=== PATIENT | female | born 1990 | race Caucasian/White ===

== ENCOUNTER 2019-01-16 23:33 | Emergency (ER) | payer OTHER ==
[2019-01-17] MEDS ORDERED: Morphine 4 MG/ML VIAL ONE (00:02)
[2019-01-17] MEDS ORDERED: Lidocaine Viscous Sol 2% 15 ml UD Cup ONE (00:02)
[2019-01-17] MEDS ORDERED: Mag-Al Plus 1200 MG/1200 MG/120 MG/30 ML UDCUP ONE (00:02)
[2019-01-17] MEDS ORDERED: Ondansetron PF 4 MG/2 ML Vial ONE (00:10)
[2019-01-17 00:13] LABS: #Basophils 0.1 thou/uL (0.0-0.2); #Eosinphils 0.7 thou/uL (0.0-0.7); #Lymphocytes 2.4 thou/uL (1.20-3.40); #Monocytes 0.9 thou/uL (0.11-0.59); #Neutrophils 12.2 thou/uL (1.40-6.50); %Basophils 0.8 % (0.0-1.0); %Eosinophils 4.3 % (0.0-10.0); %Lymphocytes 14.8 % (21.0-51.0); %Monocytes 5.6 % (0.0-10.0); %Neutrophils 74.5 % (42.0-75.0); Hemoglobin 12.5 g/dL (12.0-16.0); Mean Corpuscular HGB CONC 34.1 g/dL (32.0-36.0); Mean Corpuscular Hemoglobin 28.4 pg (27.0-31.0); Mean Corpuscular Volume 83.3 fL (78.0-98.0); Platelet Count 287 thou/uL (130-400); RBC Distribution Width 12.6 % (11.5-14.5); White Blood Cell (WBC) Count 16.4 thou/uL (4.8-10.8)
[2019-01-17 00:23] LABS: BHCG - Serum Negative (NEGATIVE); Pregs Control Background? CLEAR/WHITE (CLR/WHITE); Pregs Control Bar Appear? YES (CONTROL BAR)
[2019-01-17 00:24] LABS: Bilirubin Negative (Negative); Blood, Urine Negative (Negative); Clarity Slightly Cloudy (Clear); Glucose, Urine (Dipstick) Negative (Negative); Leukocyte Negative (Negative); Nitrite Negative (Negative); Protein, Urine (Dipstick) Negative (Neg-Trace); Urobilinogen 0.2 mg/dL (Less than 2)
[2019-01-17 00:27] LABS: ALT (SGPT) 19 U/L (8-55); AST (SGOT) 15 U/L (5-34); Albumin 4.3 g/dL (3.5-5.0); Alkaline Phosphatase 51 U/L (40-150); Anion Gap 13 mmol/L (10-20); BUN (Urea Nitrogen) 14 mg/dL (7.0-18.7); Bilirubin, Total 0.2 mg/dL (0.2-1.2); Calc. Creatinine Clearance 0 mL/min (70-130); Calcium 9.9 mg/dL (7.8-10.44); Carbon Dioxide 27 mmol/L (22-29); Chloride 105 mmol/L (98-107); Estimated GFR-MDRD 82; Globulin 2.9 g/dL (2.4-3.5); Glucose 112 mg/dL (70-105); Lipase 9 U/L (8-78); Potassium 3.9 mmol/L (3.5-5.1); Protein, Total 7.2 g/dL (6.0-8.3); Sodium 141 mmol/L (136-145)
[2019-01-17] MEDS ORDERED: Ketorolac Tromethamine 30 MG/ML VIAL ONE (00:30)
--- NOTE | 2019-01-17 07:44 | ULT ---
PRELIMINARY REPORT/[facility]/EMERGENCY AFTER HOURS PROCEDURE: EXAM: US Abdomen Limited, Right Upper Quadrant EXAM DATE/TIME: 01/17/2019 12:40 AM CLINICAL HISTORY: 28 years old, female; Abdominal pain; Generalized; Patient HX: Abd pain. Nausea today TECHNIQUE: Imaging protocol: Real-time ultrasound of the abdomen with image documentation. Examination was focused on the right upper quadrant. COMPARISON: No relevant prior studies available. FINDINGS: Liver: No acute findings. No mass. Gallbladder: No acute findings. No gallstones. Common bile duct: Unremarkable. Pancreas: Visualized pancreas is unremarkable. Right kidney: No acute findings. No mass. No hydronephrosis. IMPRESSION: No acute findings. Thank you for allowing us to participate in the care of your patient. Dictated and Authenticated by: Palmer Wilson MD 01/17/2019 1:26 AM Central Time ([place]) Final report by Dr. Hill Emergency after-hours study ULTRASOUND ABDOMEN LIMITED: (RIGHT UPPER QUADRANT) DATE: 01/17/2019 HISTORY: Right upper quadrant abdominal pain and nausea FINDINGS: Gallbladder: Normal wall thickness. No gallstones or sludge identified. No pericholecystic fluid. Liver: Normal parenchymal echogenicity. Right kidney: No hydronephrosis. Pancreas: Visualized, with no gross sonographic abnormality identified (although ultrasound is relati vely insensitive for the detection of pancreatic pathology compared to CT and MRI.). Common duct caliber: 4 mm. Agree with preliminary report by [facility]. IMPRESSION: Normal. Transcribed Date/Time: 01/17/2019 8:09 AM
== END 2019-01-17 01:49 | disposition home or self-care (01) ==
LOC: SCSER 23:33
DX: R10.10 Upper abdominal pain, unspecified (principal); F41.9 Anxiety disorder, unspecified; F32.9 Major depressive disorder, single episode, unspecified; F17.210 Nicotine dependence, cigarettes, uncomplicated; G43.909 Migraine, unspecified, not intractable, without status migrainosus
CPT/HCPCS: 76705; 80053; 81003; 83690; 84703; 85025; 96361; 96374; 96375; J1885; J2270; J2405

== ENCOUNTER 2019-01-18 19:47 | Inpatient (IN) | payer OTHER ==
[~2019-01-18 19:47] MED LIST: Iopamidol 300 61% 100 ML VIAL FS ONE
[2019-01-18 21:04] LABS: #Basophils 0.2 thou/uL (0.0-0.2); #Eosinphils 0.1 thou/uL (0.0-0.7); #Lymphocytes 1.2 thou/uL (1.20-3.40); #Monocytes 1.6 thou/uL (0.11-0.59); #Neutrophils 16.5 thou/uL (1.40-6.50); %Basophils 0.9 % (0.0-1.0); %Eosinophils 0.5 % (0.0-10.0); %Lymphocytes 6.3 % (21.0-51.0); %Neutrophils 84.4 % (42.0-75.0); Mean Corpuscular HGB CONC 33.2 g/dL (32.0-36.0); Mean Corpuscular Hemoglobin 28.3 pg (27.0-31.0); Mean Corpuscular Volume 85.1 fL (78.0-98.0); Mean Platelet Volume 6.9 fL (7.4-10.4); Platelet Count 255 thou/uL (130-400); RBC Distribution Width 13.1 % (11.5-14.5); Red Blood Cell (RBC) Count 4.59 mill/uL (4.20-5.40); White Blood Cell (WBC) Count 19.6 thou/uL (4.8-10.8)
[2019-01-18] MEDS ORDERED: Ondansetron PF 4 MG/2 ML Vial ONE (21:04)
[2019-01-18] MEDS ORDERED: Morphine 4 MG/ML VIAL ONE (21:04)
[2019-01-18 21:06] LABS: Bilirubin Small (Negative); Blood, Urine Small (Negative); Clarity Cloudy (Clear); Glucose, Urine (Dipstick) Negative (Negative); Leukocyte Negative (Negative); Nitrite Negative (Negative); Protein, Urine (Dipstick) 30 mg/dL (Neg-Trace); Urobilinogen 0.2 mg/dL (Less than 2)
[2019-01-18 21:12] LABS: Bacteria/HPF 2+ HPF (None Seen); Mucous/LPF 2+ LPF (<2+)
[2019-01-18 21:13] LABS: BHCG - Serum Negative (NEGATIVE); Pregs Control Background? CLEAR/WHITE (CLR/WHITE); Pregs Control Bar Appear? YES (CONTROL BAR)
[2019-01-18 21:20] LABS: ALT (SGPT) 14 U/L (8-55); AST (SGOT) 13 U/L (5-34); Albumin 4.3 g/dL (3.5-5.0); Alkaline Phosphatase 69 U/L (40-150); Anion Gap 17 mmol/L (10-20); BUN (Urea Nitrogen) 11 mg/dL (7.0-18.7); Bilirubin, Total 0.8 mg/dL (0.2-1.2); Calc. Creatinine Clearance 0 mL/min (70-130); Calcium 9.8 mg/dL (7.8-10.44); Carbon Dioxide 23 mmol/L (22-29); Chloride 100 mmol/L (98-107); Estimated GFR-MDRD Greater than 90; Globulin 3.6 g/dL (2.4-3.5); Glucose 93 mg/dL (70-105); Potassium 3.8 mmol/L (3.5-5.1); Protein, Total 7.9 g/dL (6.0-8.3); Sodium 136 mmol/L (136-145)
[2019-01-18] MEDS ORDERED: Piperacillin/Tazobactam 4.5 GM VIAL ONE (21:53)
--- NOTE | 2019-01-18 21:53 | CT ---
EXAM: CT ABDOMEN AND PELVIS HISTORY: Abdominal pain. Right upper quadrant pain. Right lower quadrant pain. COMPARISON: None. Procedure: Multiple contiguous axial images were obtained and a CT of the abdomen and pelvis with IV contrast. C oronal reformats were performed. FINDINGS: Lower Chest: within normal limits. Vessels: Normal caliber aorta. Heart: Normal heart size Abdomen: Portal vein:Patent Gallbladder: No calcified gallstones. Normal caliber wall. Liver: within normal limits. Pancreas: within normal limits. Spleen: within normal limits. Adrenals: within normal limits. Kidneys: Symmetric enhancement. No obstructive uropathy. Peritoneum: There is free fluid tracking along the posterior midline aspect of the mesentery. No evid ence of pneumoperitoneum. No mass or lymphadenopathy. Bowel: Limited evaluation by technique. No evidence of small bowel obstruction. Ileocecal junction is normal. Unremarkable colon. Emanating from the cecal apex is a dilated tubular structure with adjacent fat stranding and fluid. At the base of the structure, there is a hyperdense lesion compatib le with an appendicolith measuring 1.0 x 0.9 cm. Dilated appendix measures 1.7 cm. Mesentery and Retroperitoneum: Scattered nonspecific mesenteric lymph nodes may be reactive Abdominal Wall: within normal limits. Pelvis: Reproductive Organs: Uterus and left adnexa are unremarkable. Peripherally enhancing hypodensity in t he right adnexa may represent a 1.3 cm right ovarian follicle. Pelvis: Free fluid in the pelvis. Bladder: within normal limits. Bones: within normal limits. IMPRESSION: Appendicitis. Results of study discussed with Shahrzad Barrow 01/18/2019 at 9:52 PM Code CR Transcribed Date/Time: 01/18/2019 9:56 PM
[2019-01-18] MEDS ORDERED: Fentanyl 100 MCG/2 ML VIAL ONE (22:55)
[2019-01-19] MEDS ORDERED: Acetaminophen 1,000 MG in Premix Bag 1 BAG IVPB PRN (00:01)
[2019-01-19] MEDS ORDERED: Morphine 4 MG/ML VIAL SLOW IVP PRN (00:01)
[2019-01-19] MEDS: Lactated Ringer's 1,000 ML IV SCH ×2 (00:37→08:31)
[2019-01-19] MEDS ORDERED: Sodium Chloride 0.9% 10 ML ONE ×2 (00:55→06:27)
[2019-01-19 01:14] VITALS: BMI 33.7
[2019-01-19] MEDS ORDERED: Piperacillin/Tazobactam 4.5 GM in Sodium Chloride 0.9% 100 ML IVPB SCH (04:00)
[2019-01-19] MEDS ORDERED: Bupivacaine/Epinephrine 0.25% 30 ML VIAL ONE (07:44)
[2019-01-19] MEDS ORDERED: Fentanyl 100 MCG/2 ML VIAL ONE ×3 (08:22→10:02)
--- NOTE | 2019-01-19 08:52 | HP ---
CHIEF COMPLAINT: Right lower quadrant abdominal pain. HISTORY OF PRESENT ILLNESS: The patient is a 28-year-old white female. She presented to the emergency room late last night complaining of right lower quadrant abdominal pain. White blood cell count was elevated at 19,000. CT scan was obtained with findings consistent with acute, but probably nonperforated appendicitis. She was placed on IV antibiotics and admitted to my service. Of note, she had presented to the emergency room 2 days previously with complaint of abdominal pain, but at that time, it was felt to be right upper quadrant abdominal pain. Her white blood cell count at that time was 16.4. A gallbladder ultrasound was obtained that revealed no evidence of abnormality regarding her gallbladder. She was reassured and discharged home at that time. She returned about 36 hours later when the pain persisted and progressed to the right lower quadrant. PAST MEDICAL HISTORY: Negative. PAST SURGICAL HISTORY: None. MEDICATIONS: None. ALLERGIES: NO KNOWN DRUG ALLERGIES. PERSONAL AND SOCIAL HISTORY: She smokes, but less than 1 pack per day. She does not drink alcohol significantly. She is . Her is present at the bedside. She has 2 young children. She is a teacher. REVIEW OF SYSTEMS: Ten-system review is otherwise unremarkable. FAMILY HISTORY: Noncontributory. PHYSICAL EXAMINATION: VITAL SIGNS: She has been afebrile since admission. Her pulse is 88, blood pressure is 108/60. GENERAL: She is a well-developed, well-nourished, pleasant white female, resting in bed, and in no acute distress. She is alert and oriented x3. HEAD, EYES, EARS, NOSE, AND THROAT: Unremarkable. NECK: Supple without mass or tenderness. LUNGS: Clear to auscultation throughout. CARDIAC: Regular rate and rhythm without murmur. ABDOMEN: Soft. Bowel sounds are present, but hypoactive. There is focal tenderness in the right lower quadrant with guarding consistent with acute appendicitis. ASSESSMENT: The patient with acute appendicitis. PLAN: Laparoscopic appendectomy. I have discussed the operation in detail with the patient as well as potential risks. She understands and agrees to proceed with surgery at this time. Job ID: [id number]
[2019-01-19] MEDS ORDERED: Ketorolac Tromethamine 30 MG/ML VIAL IVP PRN (08:59)
[2019-01-19] MEDS ORDERED: HYDROmorphone 2 MG/ML VIAL SLOW IVP PRN (08:59)
[2019-01-19] MEDS ORDERED: Promethazine HCl 25 MG/ML VIAL SLOW IVP PRN (08:59)
[2019-01-19] MEDS ORDERED: Morphine Sulfate 2 MG/ML SYRINGE SLOW IVP PRN (08:59)
[2019-01-19] MEDS ORDERED: Meperidine HCl/PF 25 MG/ML VIAL SLOW IVP PRN (08:59)
[2019-01-19] MEDS ORDERED: PACU-Morphine 4MG/ML VIAL SLOW IVP PRN (08:59)
[2019-01-19] MEDS ORDERED: Promethazine HCl 25 MG/ML VIAL IM PRN ×2 (08:59→10:33)
[2019-01-19] MEDS ORDERED: Ondansetron HCl/PF 4 MG/2 ML Vial IVP PRN (08:59)
[2019-01-19] MEDS ORDERED: hydrALAZINE 20 MG/ML VIAL SLOW IVP PRN (10:33)
[2019-01-19] MEDS ORDERED: Acetaminophen 325 MG TAB PO PRN (10:33)
[2019-01-19] MEDS ORDERED: Dextrose 50% Abboject 50 ML SYRINGE SLOW IVP PRN (10:33)
[2019-01-19] MEDS ORDERED: Ondansetron PF 4 MG/2 ML Vial IVP PRN (10:33)
[2019-01-19] MEDS ORDERED: Dextrose 5% in Water 1,000 ML IV PRN (10:33)
[2019-01-19] MEDS: Ketorolac Tromethamine 30 MG/ML VIAL IVP SCH ×2 (11:25→17:35)
[2019-01-19] MEDS: Piperacillin/Tazobactam 3.375 GM in Sodium Chloride 0.9% 100 ML IVPB SCH ×2 (11:25→17:36)
[2019-01-19] MEDS: D5 1/2 NS w/20 mEq KCL 1,000 ML IV SCH ×2 (11:26→19:40)
[2019-01-19] MEDS: HYDROcodone/Acetaminophen 10/325 mg Tablet PO PRN ×2 (13:18→17:36)
[2019-01-19] MEDS ORDERED: Ondansetron PF 4 MG/2 ML Vial ONE (13:22)
[2019-01-19] MEDS ORDERED: Ketorolac Tromethamine 30 MG/ML VIAL ONE (13:22)
[2019-01-19] MEDS ORDERED: Dexamethasone 20 MG/5 ML VIAL ONE (13:22)
[2019-01-19] MEDS ORDERED: PROPOFOL 200 MG/20 ML VIAL ONE (13:22)
[2019-01-19] MEDS ORDERED: Lidocaine 1% PF 5 ML VIAL ONE (13:22)
[2019-01-19] MEDS ORDERED: Glycopyrrolate 0.2 MG/ML 5 ML SYRINGE ONE (13:22)
[2019-01-19] MEDS ORDERED: PROVENTIL INHALER 6.7 G (200 INHALATIONS) ONE (13:22)
[2019-01-19] MEDS ORDERED: Rocuronium Bromide 10 MG/ML (10ML VIAL) ONE (13:22)
[2019-01-19] MEDS ORDERED: Succinylcholine Chloride 20 MG/ML 10 ml SYRINGE FS ONE (13:22)
--- NOTE | 2019-01-19 13:45 | OP ---
DATE OF PROCEDURE: 01/19/2019 PREOPERATIVE DIAGNOSIS: Acute appendicitis. POSTOPERATIVE DIAGNOSIS: Acute appendicitis, gangrenous. OPERATION PERFORMED: Laparoscopic appendectomy with washout and drain placement. ANESTHESIA: General endotracheal. INDICATIONS: The patient is a 28-year-old white female. She presented with findings of acute appendicitis, taken to the operating room at this time for laparoscopic appendectomy. DESCRIPTION OF OPERATION: Informed consent was obtained. The patient was taken to the operating room, where general endotracheal anesthesia was obtained with the patient in supine position. Abdomen was prepped with ChloraPrep, draped in sterile fashion. Local anesthetic was infiltrated using 0.25% Marcaine with epinephrine. A 5-mm infraumbilical incision was created, through which a Veress needle was passed into the peritoneal cavity and pneumoperitoneum was established using carbon dioxide up to pressure of 15 mmHg. A 5-mm trocar port sites was passed through the same incision and laparoscopic camera was passed through this port. Under direct vision, 2 additional ports were placed using a 5-mm left lower quadrant port and a 12-mm suprapubic port. Within the abdomen, there was obvious acute appendicitis. There was no evidence of perforation. As I mobilized the small bowel and the cecum, however, the appendix immediately perforated. There was a gangrenous segment and a fecalith fell out of this gangrenous segment. This was preserved and then removed later. With difficulty, the mesoappendix was taken down with electrocautery. The base of the appendix was skeletonized. There was severe inflammation involving the base of the appendix. I therefore utilized the stapler, firing two loads across the base of the appendix and the cecum. The appendix was placed in a specimen retrieval sac along with a fecalith and this was removed through the suprapubic port. Fascia was closed with 0 Vicryl suture using a GraNee needle. The right lower quadrant pelvis was thoroughly irrigated. All irrigant was aspirated. A #19 round fluted drain was obtained and brought out through the left lower quadrant incision and placed across the pelvis and right lower quadrant. It was secured in place with 3-0 nylon suture. All ports were removed under direct vision. Pneumoperitoneum was carefully evacuated. 0.25% Marcaine with epinephrine was infiltrated into each port site. Skin edges were approximated with 4-0 Monocryl subcuticular suture. Dermabond was placed externally. There were no complications. The patient tolerated the procedure well and was taken to recovery room in stable condition. Job ID: [id number]
[2019-01-19] MEDS: Famotidine 20 MG TAB PO SCH (20:35)
[2019-01-19] MEDS: Enoxaparin Sodium 40 MG/0.4 ML SYRINGE SC SCH (20:38)
[2019-01-19] MEDS: Famotidine/PF 20 mg/2ml Vial SLOW IVP SCH (21:00)
[2019-01-19] MEDS: Morphine 4 MG/ML VIAL SLOW IVP PRN (21:59)
[2019-01-20] MEDS: Ketorolac Tromethamine 30 MG/ML VIAL IVP SCH ×4 (00:16→18:32)
[2019-01-20] MEDS: Piperacillin/Tazobactam 3.375 GM in Sodium Chloride 0.9% 100 ML IVPB SCH ×4 (00:19→18:44)
[2019-01-20] MEDS: Morphine 4 MG/ML VIAL SLOW IVP PRN ×3 (05:30→16:45)
[2019-01-20] MEDS: D5 1/2 NS w/20 mEq KCL 1,000 ML IV SCH ×3 (05:33→22:55)
[2019-01-20 06:37] LABS: Anion Gap 10 mmol/L (10-20); BUN (Urea Nitrogen) 9 mg/dL (7.0-18.7); Calc. Creatinine Clearance 153 mL/min (70-130); Calcium 8.8 mg/dL (7.8-10.44); Carbon Dioxide 24 mmol/L (22-29); Chloride 106 mmol/L (98-107); Estimated GFR-MDRD Greater than 90; Glucose 135 mg/dL (70-105); Potassium 4.2 mmol/L (3.5-5.1); Sodium 136 mmol/L (136-145)
[2019-01-20 09:10] LABS: #Lymphocytes 0.8 thou/uL (1.20-3.40); #Monocytes 0.9 thou/uL (0.11-0.59); %Basophils 0.1 % (0.0-1.0); %Eosinophils 0.1 % (0.0-10.0); %Lymphocytes 6.2 % (21.0-51.0); %Monocytes 6.8 % (0.0-10.0); %Neutrophils 86.9 % (42.0-75.0); Hemoglobin 9.3 g/dL (12.0-16.0); Mean Corpuscular HGB CONC 32.8 g/dL (32.0-36.0); Mean Corpuscular Hemoglobin 29.2 pg (27.0-31.0); Mean Platelet Volume 7.6 fL (7.4-10.4); Platelet Count 216 thou/uL (130-400); RBC Distribution Width 12.7 % (11.5-14.5); Red Blood Cell (RBC) Count 3.17 mill/uL (4.20-5.40); White Blood Cell (WBC) Count 12.7 thou/uL (4.8-10.8)
[2019-01-20] MEDS: Famotidine 20 MG TAB PO SCH ×2 (09:49→21:14)
[2019-01-20] MEDS: HYDROcodone/Acetaminophen 10/325 mg Tablet PO PRN ×3 (12:33→21:14)
--- NOTE | 2019-01-20 14:08 | PRG ---
DATE OF SERVICE: 01/20/2019 SUBJECTIVE: Ms. Cristina is postoperative day #1 from laparoscopic appendectomy. She had a gangrenous/perforated appendix. She had intraabdominal contamination at the time of her surgery. A drain was placed for postoperative day drainage. She has no complaints. She notes minimal appropriate discomfort. She tells me she is ambulating in the hallway and tolerating her diet, although her appetite is less than usual. OBJECTIVE: VITAL SIGNS: On examination, she is afebrile. Vital signs within normal limits. Her blood pressure is a little bit low, but stable at 105/68. LUNGS: Clear to auscultation. ABDOMEN: Soft with normoactive bowel sounds. She has mild appropriate tenderness to palpation at the areas of her incisions and in the right lower quadrant. Her drain output was 200 mL yesterday, but that is expected given the amount of irrigation. Her urine output was good. LABORATORY DATA: Her white blood cell count has dropped from 19.6 down to 12.7. Her hemoglobin dropped from 13 down to 9.3. Her basic metabolic panel is essentially normal. ASSESSMENT: She is doing very well following laparoscopic appendectomy and receiving intravenous antibiotics. Continue the IV antibiotics and regular diet. PLAN: Discharge tomorrow after her CORNELIO drain is removed. Job ID: [id number]
[2019-01-20] MEDS: Famotidine/PF 20 mg/2ml Vial SLOW IVP SCH ×2 (19:36→21:00)
[2019-01-20] MEDS: Enoxaparin Sodium 40 MG/0.4 ML SYRINGE SC SCH (21:15)
[2019-01-21] MEDS: Ketorolac Tromethamine 30 MG/ML VIAL IVP SCH ×3 (00:43→11:48)
[2019-01-21] MEDS: Piperacillin/Tazobactam 3.375 GM in Sodium Chloride 0.9% 100 ML IVPB SCH ×3 (00:45→11:48)
[2019-01-21] MEDS: Famotidine 20 MG TAB PO SCH (09:34)
[2019-01-21] MEDS: D5 1/2 NS w/20 mEq KCL 1,000 ML IV SCH (10:58)
[2019-01-21] MEDS: Famotidine/PF 20 mg/2ml Vial SLOW IVP SCH (10:59)
[2019-01-21] MEDS ORDERED: D5 1/2 NS w/20 mEq KCL 1,000 ML IV SCH (11:15)
[2019-01-21 11:30] LABS: #Eosinphils 0.2 thou/uL (0.0-0.7); #Lymphocytes 2.3 thou/uL (1.20-3.40); #Monocytes 0.6 thou/uL (0.11-0.59); %Basophils 0.5 % (0.0-1.0); %Eosinophils 2.5 % (0.0-10.0); %Lymphocytes 27.6 % (21.0-51.0); %Monocytes 7.8 % (0.0-10.0); %Neutrophils 61.7 % (42.0-75.0); Hemoglobin 8.8 g/dL (12.0-16.0); Mean Corpuscular Hemoglobin 28.6 pg (27.0-31.0); Mean Corpuscular Volume 89.4 fL (78.0-98.0); Mean Platelet Volume 7.1 fL (7.4-10.4); Platelet Count 260 thou/uL (130-400); RBC Distribution Width 12.7 % (11.5-14.5); Red Blood Cell (RBC) Count 3.06 mill/uL (4.20-5.40); White Blood Cell (WBC) Count 8.2 thou/uL (4.8-10.8)
[2019-01-21 12:04] VITALS: BP 98/56; TEMP 98.7
--- NOTE | 2019-01-22 05:30 | DIS ---
DATE OF ADMISSION: 01/18/2019 DATE OF DISCHARGE: 01/21/2019 ADMISSION DIAGNOSIS: Acute appendicitis. DISCHARGE DIAGNOSIS: Acute appendicitis, gangrenous. OPERATION PERFORMED: Laparoscopic appendectomy with washout and drain placement. ADMISSION HISTORY: The patient is a 28-year-old white female. She presented on the evening of January 18. She had CT evidence of acute appendicitis. Unfortunately, about 36 hours previously, she had been to the emergency room and she was discharged from the emergency room because it was felt that she had a gallbladder-related problem. HOSPITAL COURSE: When she returned, she unfortunately had gangrenous appendicitis and there was spillage and necrosis apparent during surgery. For that reason, she was washed out and kept in the hospital for 2 days on IV antibiotics. A drain was placed at the time of surgery, which was removed today. She is tolerating her diet and ambulating. She is afebrile and vital signs are within normal limits. Her white blood cell count is normalized dropping from 19 down to 8 today. She has become somewhat anemic as well with a hemoglobin of 8.8. She will therefore be discharged on iron. She is receiving tramadol as necessary to use at home for pain, and Augmentin to take for the next 5 days. Job ID: [id number]
== END 2019-01-21 15:40 | disposition home or self-care (01) | DRG 343 ==
LOC: SCSER 19:47 → 2SE 20:41 → ERHOLD 22:36 → 3SE 23:48
PROVIDERS: ADMIT Specialist; ATTEND Specialist
PROC: 0DTJ4ZZ Resection of Appendix, Percutaneous Endoscopic Approach (ICD-10-PCS; principal; 2019-01-19)
DX: K35.80 Unspecified acute appendicitis (principal); F17.210 Nicotine dependence, cigarettes, uncomplicated; F41.9 Anxiety disorder, unspecified; F32.9 Major depressive disorder, single episode, unspecified
CPT/HCPCS: 36415; 74177; 76705; 80048; 80053; 81003; 81015; 83605; 83690; 84703; 85025; 88304; 96361; 96365; 96374; 96375; J0131; J1100; J1650; J1885; J2001; J2270; J2405; J2543; J2704; J3010; J3490; Q9967

== ENCOUNTER 2019-01-31 12:30 | Outpatient (CLI) | payer OTHER ==
--- NOTE | 2019-01-31 15:47 | CT ---
CT ABDOMEN AND PELVIS WITH CONTRAST: Date: 01/31/19 HISTORY: Right lower quadrant pain. COMPARISON: CT abdomen and pelvis dated 01/18/19. FINDINGS: Lung bases are clear. No pericardial effusion. There appears to be suture at the cecal apex. No free intraperitoneal gas or fluid. There is moderate narrowing of a loop of small bowel with some adjacent residual inflammatory change from the prior ar ea of what appears to be a ruptured appendicitis. This is likely causing some cirrhosal inflammation. There is also a focal area of soft tissue attenuation between the sigmoid colon and a loop of distal small bowel, likely residua of prior infection. No drainable collection. The kidneys are unremarkable. The spleen, liver, pancreas, gallbladder, adrenal glands, and aortoilia c contour are normal. IMPRESSION: Evidence of recent appendicitis with some low grade residual inflammatory change causing narrowing of a loop of distal small bowel, axial image 51, from serosal inflammation. There is also developing te thering between a loop of sigmoid colon and distal small bowel. No drainable collection. POS: HOME
== END 2019-01-31 12:31 | disposition home or self-care (01) ==
LOC: BICCT 12:30
PROVIDERS: ATTEND Specialist
DX: R10.31 Right lower quadrant pain (principal); K37 Unspecified appendicitis; K56.699 Other intestinal obstruction unspecified as to partial versus complete obstruction
CPT/HCPCS: 74177; 81001; 87086